=== PATIENT | female | born 1995 | race Caucasian/White ===

== ENCOUNTER → 2021-08-22 12:30 | Observation (INO) ==
[2021-08-21] MEDS: Betamethasone Acet/SodPhos 30 MG/5 ML VIAL IM SCH (12:13)
[2021-08-21 12:15] LABS: Amorphous Sediment,Urine Few per hpf (None-Few); Bilirubin,Urine Negative (Negative); Blood,Urine Negative (Negative); Clarity,Urine Turbid (Clear); Color,Urine Light-Yellow (Yellow); Glucose,Urine (UA) Normal (Normal); Ketones,Urine Negative (Negative); Leukocyte Esterase,Urine Large (Negative); Mucus,Urine Few per lpf (None-Few); Nitrite,Urine Negative (Negative); Protein,Urine Trace mg/dL (Neg-Trace); Squamous Epithelial Cell,Urine Moderate per hpf (None-Few); Urobilinogen,Urine Normal (Normal)
[2021-08-21] MEDS: Ringers Solution, Lactated 1,000 ML IVC SCH (14:52)
[2021-08-21] MEDS: Magnesium Sulf 20 gm/SW 500mL 20 GM/500 ML IV.SOLN IVC SCH (15:58)
[2021-08-21] MEDS: Indomethacin 25 MG CAPSULE PO SCH (18:55)
[2021-08-22] MEDS: Indomethacin 25 MG CAPSULE PO SCH ×2 (01:09→07:40)
[2021-08-22] MEDS: Ringers Solution, Lactated 1,000 ML IVC SCH (04:05)
[2021-08-22] MEDS: Magnesium Sulf 20 gm/SW 500mL 20 GM/500 ML IV.SOLN IVC SCH (08:00)
[2021-08-22] MEDS: Betamethasone Acet/SodPhos 30 MG/5 ML VIAL IM SCH (12:19)
[~2021-08-22 12:30] MED LIST: Calcium Gluconate 1,000 MG/10 ML VIAL IVP PRN; Indomethacin 25 MG CAPSULE PO ONE; Magnesium Sulf 20 gm/SW 500mL 4 GM/100 ML BAG IV ONE; Ringers Solution, Lactated 1,000 ML IVC ONE
[2021-08-22 12:40] VITALS: BP 101/58; PULSE 60; TEMP 97.9; O2SAT 98
== END | disposition home or self-care (01) ==
LOC: 1NENULAB
PROVIDERS: ADMIT Obstetrics & Gynecology; ATTEND Obstetrics & Gynecology